=== PATIENT | male | born 1960 | race Caucasian/White ===

== ENCOUNTER 2018-04-18 18:45 | Emergency (ER) | payer OTHER ==
[~2018-04-18] VITALS: Ht 170.2 cm; Wt 79.4 kg
[2018-04-18 19:52] LABS: BASOPHILS ABSOLUTE AUTO 0.04 K/mm3 (0.00-0.23); BASOPHILS PERCENT AUTO 1 % (0-2); EOSINOPHILS ABSOLUTE AUTO 0.32 K/mm3 (0.00-0.68); EOSINOPHILS PERCENT AUTO 7 % (0-6); Hematocrit 35.3 % (37.0-53.0); Hemoglobin 12.6 g/dL (13.5-17.5); IMMATURE GRAN ABSOLUTE AUTO 0.02 K/mm3 (0.00-0.10); IMMATURE GRAN PERCENT AUTO 1 % (0-1); LYMPHOCYTES ABSOLUTE AUTO 1.75 K/mm3 (0.84-5.20); LYMPHOCYTES PERCENT AUTO 41 % (21-46); MONOCYTES ABSOLUTE AUTO 0.33 K/mm3 (0.16-1.47); MONOCYTES PERCENT AUTO 8 % (4-13); Mean Corpuscular HGB 31.6 pg (26.0-34.0); Mean Corpuscular HGB Conc 35.7 g/dL (31.5-36.5); Mean Corpuscular Volume 89 fL (80-100); Mean Platelet Volume 10.3 fL (9.1-12.4); NEUTROPHILS ABSOLUTE AUTO 1.84 K/mm3 (1.96-9.15); NEUTROPHILS PERCENT AUTO 43 % (41-73); Platelet Count 228 K/mm3 (150-400); RDW Coefficient Variation 12.4 % (11.7-14.2); RDW Standard Deviation 40.8 fL (35.1-46.3); Red Blood Cell Count 3.99 M/mm3 (4.30-5.90)
[2018-04-18 20:07] LABS: Alanine Aminotransfer (ALT/SGP 60 U/L (12-78); Albumin, Blood 2.9 g/dL (3.4-5.0); Alk Phos 146 U/L (50-136); Anion Gap 8 mmol/L (6-16); Aspartate Aminotrans (AST/SGOT 53 U/L (12-37); Bilirubin, Total 0.6 mg/dL (0.1-1.0); Blood Urea Nitrogen 19 mg/dL (8-24); Bun/Creatinine Ratio 27.4 (12.0-20.0); CO2, Blood 27 mmol/L (21-32); Calcium, Blood 8.4 mg/dL (8.5-10.1); Chloride, Blood 98 mmol/L (98-108); Creatinine, Blood 0.69 mg/dL (0.60-1.20); Globulin, Blood 2.8 g/dL (2.2-4.0); Glomerular Filtration Rate >60 (60-); Glucose, Blood 347 mg/dL (70-99); Potassium, Blood 4.1 mmol/L (3.5-5.5); Sodium, Blood 133 mmol/L (136-145); Total Protein, Blood 5.7 g/dL (6.4-8.2); Troponin I <0.015 ng/mL (0.000-0.040)
[2018-04-18 20:09] LABS: Ethanol (Alcohol), Blood, Med <3 mg/dL
[2018-04-18 20:27] LABS: Source, Urine Clean Catch
[2018-04-18 20:34] LABS: Appearance, Urine Clear (Clear); Bilirubin, Urine Neg (Neg); Blood, Urine Neg (Neg); Color, Urine Yellow (P-Yellow); Glucose Qualitative, Urine 4+ (Neg); Ketones, Urine Neg (Neg); Leukocyte Esterase, Urine Neg (Neg); Nitrite, Urine Neg (Neg); Protein, Urine Neg (Neg); Urobilinogen, Urine NORM (Normal)
[2018-04-18 20:57] LABS: U Amphetamine Screen DETECTED; U Barbituate Screen Not Detected; U Benzodiazapine Screen Not Detected; U Buprenorphine Screen Not Detected; U Cannabinoids Screen Not Detected; U Cocaine Screen Not Detected; U Methadone Screen Not Detected; U Methamphetamine Screen DETECTED; U Opiates Screen Not Detected; U Oxycodone Screen Not Detected; U Phencyclidine Screen Not Detected; U Propoxyphene Screen Not Detected
== END 2018-04-18 21:40 | disposition home or self-care (01) ==
LOC: ER 18:45
PROVIDERS: Emergency Medicine
DX: E11.65 Type 2 diabetes mellitus with hyperglycemia (principal); F15.10 Other stimulant abuse, uncomplicated; E86.0 Dehydration; Z87.891 Personal history of nicotine dependence
CPT/HCPCS: 74177; 80053; 81003; 83690; 84484; 85025; 93005; 93010; 96360; 96361; 99285-25; G0480; J7030; Q9967

== ENCOUNTER 2021-03-29 10:37 | Emergency (ER) | payer OTHER ==
[~2021-03-29] VITALS: Ht 170.2 cm; Wt 77.1 kg
[2021-03-29 11:08] LABS: BASOPHILS ABSOLUTE AUTO 0.03 K/mm3 (0.00-0.23); BASOPHILS PERCENT AUTO 0 % (0-2); EOSINOPHILS PERCENT AUTO 3 % (0-6); Hematocrit 36.4 % (37.0-53.0); Hemoglobin 12.9 g/dL (13.5-17.5); IMMATURE GRAN ABSOLUTE AUTO 0.05 K/mm3 (0.00-0.10); IMMATURE GRAN PERCENT AUTO 1 % (0-1); LYMPHOCYTES ABSOLUTE AUTO 1.34 K/mm3 (0.84-5.20); LYMPHOCYTES PERCENT AUTO 19 % (21-46); MONOCYTES ABSOLUTE AUTO 0.48 K/mm3 (0.16-1.47); MONOCYTES PERCENT AUTO 7 % (4-13); Mean Corpuscular HGB Conc 35.4 g/dL (31.5-36.5); Mean Corpuscular Volume 88 fL (80-100); Mean Platelet Volume 9.7 fL (9.1-12.4); NEUTROPHILS ABSOLUTE AUTO 5.14 K/mm3 (1.96-9.15); NEUTROPHILS PERCENT AUTO 71 % (41-73); Platelet Count 294 K/mm3 (150-400); RDW Coefficient Variation 12.3 % (11.7-14.2); RDW Standard Deviation 39.8 fL (35.1-46.3); Red Blood Cell Count 4.16 M/mm3 (4.30-5.90); White Blood Cell Count 7.24 K/mm3 (4.00-11.30)
[2021-03-29 11:19] LABS: Alanine Aminotransfer (ALT/SGP 24 U/L (12-78); Albumin/Globulin Ratio 0.9 (0.8-1.8); Alk Phos 189 U/L (50-136); Anion Gap 3 mmol/L (6-16); Aspartate Aminotrans (AST/SGOT 31 U/L (12-37); Beta-hydroxybutyrate 0.7 mg/dL (0.2-2.8); Bilirubin, Total 0.6 mg/dL (0.1-1.0); Blood Urea Nitrogen 16 mg/dL (8-24); Bun/Creatinine Ratio 23.2 (12.0-20.0); CO2, Blood 31 mmol/L (21-32); Calcium, Blood 8.6 mg/dL (8.5-10.1); Chloride, Blood 98 mmol/L (98-108); Creatinine, Blood 0.69 mg/dL (0.60-1.20); Globulin, Blood 3.3 g/dL (2.2-4.0); Glomerular Filtration Rate >60 (60-); Glucose, Blood 338 mg/dL (70-99); Potassium, Blood 4.3 mmol/L (3.5-5.5); Sodium, Blood 132 mmol/L (136-145); Total Protein, Blood 6.3 g/dL (6.4-8.2)
[2021-03-29] MEDS ORDERED: SULTRIDS PO (12:16)
[2021-03-29 12:19] LABS: Base Excess Venous 5.8 mmol/L; Bicarbonate Venous 28.7 mmol/L (24.0-30.0); PO2 Venous 89.3 mmHg (38-42)
== END 2021-03-29 14:05 | disposition home or self-care (01) ==
LOC: ER 10:37
PROVIDERS: Emergency Medicine
DX: L02.413 Cutaneous abscess of right upper limb (principal); L03.113 Cellulitis of right upper limb; L03.316 Cellulitis of umbilicus; E11.65 Type 2 diabetes mellitus with hyperglycemia; I10 Essential (primary) hypertension
CPT/HCPCS: 10060; 80053; 82010; 82803; 82947; 85025; 87070; 87075; 87077; 87147; 87186; 87205; 96365-59; 96366-59; 99283-25; J1815; J3370; J7030; J7050

== ENCOUNTER 2022-02-23 16:46 | Emergency (ER) | payer OTHER ==
[~2022-02-23] VITALS: Ht 170.2 cm; Wt 77.1 kg
[~2022-02-23 16:46] MED LIST: SULTRIDS PO
[2022-02-23 17:45] LABS: BASOPHILS ABSOLUTE AUTO 0.03 K/mm3 (0.00-0.23); BASOPHILS PERCENT AUTO 1 % (0-2); EOSINOPHILS ABSOLUTE AUTO 0.22 K/mm3 (0.00-0.68); EOSINOPHILS PERCENT AUTO 5 % (0-6); Hematocrit 40.2 % (37.0-53.0); Hemoglobin 14.6 g/dL (13.5-17.5); IMMATURE GRAN ABSOLUTE AUTO 0.03 K/mm3 (0.00-0.10); IMMATURE GRAN PERCENT AUTO 1 % (0-1); LYMPHOCYTES ABSOLUTE AUTO 1.43 K/mm3 (0.84-5.20); LYMPHOCYTES PERCENT AUTO 32 % (21-46); MONOCYTES ABSOLUTE AUTO 0.28 K/mm3 (0.16-1.47); MONOCYTES PERCENT AUTO 6 % (4-13); Mean Corpuscular HGB 30.9 pg (26.0-34.0); Mean Corpuscular HGB Conc 36.3 g/dL (31.5-36.5); Mean Corpuscular Volume 85 fL (80-100); Mean Platelet Volume 10.1 fL (9.1-12.4); NEUTROPHILS ABSOLUTE AUTO 2.52 K/mm3 (1.96-9.15); NEUTROPHILS PERCENT AUTO 56 % (41-73); Platelet Count 285 K/mm3 (150-400); RDW Coefficient Variation 12.5 % (11.7-14.2); RDW Standard Deviation 38.5 fL (35.1-46.3); Red Blood Cell Count 4.72 M/mm3 (4.30-5.90); White Blood Cell Count 4.51 K/mm3 (4.00-11.30)
[2022-02-23 18:02] LABS: Albumin, Blood 3.3 g/dL (3.4-5.0); Albumin/Globulin Ratio 0.9 (0.8-1.8); Bilirubin, Total 0.7 mg/dL (0.1-1.0); Bun/Creatinine Ratio 27.3 (12.0-20.0); Calcium, Blood 9.1 mg/dL (8.5-10.1); Creatinine, Blood 0.81 mg/dL (0.60-1.20); Globulin, Blood 3.8 g/dL (2.2-4.0); Potassium, Blood 4.5 mmol/L (3.5-5.5); Total Protein, Blood 7.1 g/dL (6.4-8.2)
[2022-02-23 18:10] LABS: Base Excess Venous 5.5 mmol/L; Bicarbonate Venous 28.3 mmol/L (24.0-30.0); PCO2 Venous 46.8 mmHg (38-42); pH Blood Venous 7.42 (7.34-7.37)
[2022-02-23 21:23] LABS: Source, Urine Clean Catch
[2022-02-23 21:25] LABS: Appearance, Urine Clear (Clear); Bilirubin, Urine Neg (Neg); Blood, Urine 1+ (Neg); Color, Urine Yellow (P-Yellow); Glucose Qualitative, Urine 4+ (Neg); Ketones, Urine Neg (Neg); Leukocyte Esterase, Urine Neg (Neg); Nitrite, Urine Neg (Neg); Protein, Urine 2+ (Neg); Urobilinogen, Urine NORM (Normal)
[2022-02-23 21:31] LABS: Mucus Light (0-Heavy)
[2022-02-23 21:32] LABS: Bacteria Few /hpf; Squamous Epithelial Cells Rare /hpf (Few); White Blood Cells, Urine 0-2 /hpf (0-5)
[2022-02-23 23:25] LABS: Influenza A, PCR NEGATIVE (NEGATIVE); Influenza B, PCR NEGATIVE (NEGATIVE); Resp Syncytial Virus, PCR NEGATIVE (NEGATIVE); SARS-Cov-2 (COVID-19) PCR, MMC NEGATIVE (NEGATIVE)
[2022-02-23] MEDS ORDERED: MECL25 PO (23:41)
== END 2022-02-23 23:56 | disposition home or self-care (01) ==
LOC: ER 16:46
PROVIDERS: Emergency Medicine; Physician Assistant
DX: R42 Dizziness and giddiness (principal); E11.9 Type 2 diabetes mellitus without complications; Z87.891 Personal history of nicotine dependence; Z20.822 Contact with and (suspected) exposure to COVID-19
CPT/HCPCS: 0241U; 36415; 71046; 80053; 81001; 82803; 82947; 85025; 93005; 93010; A9270; J2405

== ENCOUNTER 2022-07-19 15:50 | Emergency (ER) | payer OTHER ==
[~2022-07-19] VITALS: Ht 170.2 cm; Wt 79.4 kg
[~2022-07-19 15:50] MED LIST changes: +MECL25 PO; +METF500 PO; +ONDA4ODT SL
== END 2022-07-19 16:10 | disposition home or self-care (01) ==
LOC: ER 15:50
DX: Z04.89 Encounter for examination and observation for other specified reasons (principal); E11.65 Type 2 diabetes mellitus with hyperglycemia; Z87.891 Personal history of nicotine dependence
CPT/HCPCS: 99283

== ENCOUNTER 2022-12-17 18:29 | Inpatient (IN) | payer OTHER ==
[~2022-12-17] VITALS: Ht 170.2 cm; Wt 75.6 kg
[2022-12-17 19:10] LABS: BASOPHILS ABSOLUTE AUTO 0.04 K/mm3 (0.00-0.23); BASOPHILS PERCENT AUTO 0 % (0-2); EOSINOPHILS ABSOLUTE AUTO 0.16 K/mm3 (0.00-0.68); EOSINOPHILS PERCENT AUTO 2 % (0-6); Hematocrit 32.6 % (37.0-53.0); Hemoglobin 11.6 g/dL (13.5-17.5); IMMATURE GRAN ABSOLUTE AUTO 0.06 K/mm3 (0.00-0.10); IMMATURE GRAN PERCENT AUTO 1 % (0-1); LYMPHOCYTES ABSOLUTE AUTO 1.27 K/mm3 (0.84-5.20); LYMPHOCYTES PERCENT AUTO 13 % (21-46); MONOCYTES ABSOLUTE AUTO 0.58 K/mm3 (0.16-1.47); MONOCYTES PERCENT AUTO 6 % (4-13); Mean Corpuscular HGB 31.2 pg (26.0-34.0); Mean Corpuscular HGB Conc 35.6 g/dL (31.5-36.5); Mean Corpuscular Volume 88 fL (80-100); Mean Platelet Volume 9.3 fL (9.1-12.4); NEUTROPHILS ABSOLUTE AUTO 7.67 K/mm3 (1.96-9.15); NEUTROPHILS PERCENT AUTO 79 % (41-73); Platelet Count 312 K/mm3 (150-400); RDW Coefficient Variation 12.4 % (11.7-14.2); RDW Standard Deviation 40.1 fL (35.1-46.3); Red Blood Cell Count 3.72 M/mm3 (4.30-5.90); White Blood Cell Count 9.78 K/mm3 (4.00-11.30)
[2022-12-17 20:04] LABS: Albumin, Blood 2.3 g/dL (3.4-5.0); Albumin/Globulin Ratio 0.5 (0.8-1.8); Bilirubin, Total 0.6 mg/dL (0.1-1.0); Bun/Creatinine Ratio 16.8 (12.0-20.0); C-REACTIVE PROTEIN, EXT RANGE 12.4 mg/dL (0.000-0.300); Calcium, Blood 8.3 mg/dL (8.5-10.1); Creatinine, Blood 0.71 mg/dL (0.60-1.20); Globulin, Blood 4.2 g/dL (2.2-4.0); Potassium, Blood 4.1 mmol/L (3.5-5.5); Total Protein, Blood 6.5 g/dL (6.4-8.2)
[2022-12-17 20:22] LABS: Source, Urine Clean Catch
[2022-12-17 20:36] LABS: Appearance, Urine Clear (Clear); Bilirubin, Urine Neg (Neg); Blood, Urine 2+ (Neg); Color, Urine Yellow (P-Yellow); Glucose Qualitative, Urine 4+ (Neg); Ketones, Urine Neg (Neg); Leukocyte Esterase, Urine Neg (Neg); Nitrite, Urine Neg (Neg); Protein, Urine 3+ (Neg); Specific Gravity, Urine 1.005 (1.003-1.022); Urobilinogen, Urine NORM (Normal)
[2022-12-17 20:46] LABS: Bacteria Rare /hpf; Squamous Epithelial Cells Not Seen /hpf (Few); White Blood Cells, Urine 0-2 /hpf (0-5)
[2022-12-18 05:12] VITALS: BP 155/93
--- NOTE | 2022-12-18 05:54 | NUR ---
SHIFT SUMMARY PT IS A&O4, UP WITH ONE, RA, PRN PAIN MEDICATOIN GIVEN PER MAR FOR RIGHT FOOT PAIN, PICS TAKEN AND ON CHART, PODIATRY CONSULTED, CONTINUE POC
[2022-12-18 07:39] VITALS: BP 139/91
[2022-12-18 16:17] VITALS: BP 140/91
--- NOTE | 2022-12-18 16:54 | NUR ---
SHIFT SUMMARY NO ACUTE CHANGES DURING SHIFT. PT ALERT AND ORIENTED, CALLS APPROPRIATELY. PT REMAINS ON RA. PODINATY SAW PT TODAY, MRI AND LE DOPPLER ORDERED. CONTINUE IV ABX AND PRN PAIN MEDICATIONS. WILL CONTINUE TO MONITOR. CALL LIGHT WITHIN REACH.
[2022-12-18 19:36] VITALS: BP 105/71
[2022-12-19 04:47] LABS: BASOPHILS ABSOLUTE AUTO 0.05 K/mm3 (0.00-0.23); BASOPHILS PERCENT AUTO 0 % (0-2); EOSINOPHILS ABSOLUTE AUTO 0.26 K/mm3 (0.00-0.68); EOSINOPHILS PERCENT AUTO 2 % (0-6); Hematocrit 31.6 % (37.0-53.0); IMMATURE GRAN ABSOLUTE AUTO 0.14 K/mm3 (0.00-0.10); IMMATURE GRAN PERCENT AUTO 1 % (0-1); LYMPHOCYTES ABSOLUTE AUTO 1.32 K/mm3 (0.84-5.20); LYMPHOCYTES PERCENT AUTO 10 % (21-46); MONOCYTES ABSOLUTE AUTO 0.54 K/mm3 (0.16-1.47); MONOCYTES PERCENT AUTO 4 % (4-13); Mean Corpuscular HGB Conc 34.8 g/dL (31.5-36.5); Mean Corpuscular Volume 89 fL (80-100); Mean Platelet Volume 9.5 fL (9.1-12.4); NEUTROPHILS PERCENT AUTO 83 % (41-73); Platelet Count 330 K/mm3 (150-400); RDW Coefficient Variation 12.2 % (11.7-14.2); RDW Standard Deviation 40.1 fL (35.1-46.3); Red Blood Cell Count 3.55 M/mm3 (4.30-5.90); White Blood Cell Count 13.81 K/mm3 (4.00-11.30)
[2022-12-19 05:02] LABS: Albumin, Blood 1.9 g/dL (3.4-5.0); Anion Gap 0 mmol/L (6-16); Blood Urea Nitrogen 19 mg/dL (8-24); Bun/Creatinine Ratio 25.4 (12.0-20.0); CO2, Blood 31 mmol/L (21-32); Calcium, Blood 8.4 mg/dL (8.5-10.1); Chloride, Blood 94 mmol/L (98-108); Creatinine, Blood 0.75 mg/dL (0.60-1.20); Glomerular Filtration Rate 101 (60-); Glucose, Blood 371 mg/dL (70-99); Phosphorus, Blood 2.6 mg/dL (2.5-4.9); Potassium, Blood 4.5 mmol/L (3.5-5.5); Sodium, Blood 125 mmol/L (136-145)
--- NOTE | 2022-12-19 05:49 | NUR ---
SHIFT SUMMARY PT IS A&O4, SB TO BR USES URINAL, RA, VSS, PRN PAIN MEDICATION GIVEN PER EMAR FOR RIGHT FOOT PAIN, DRESSING APPLIED TO RIGHT TOES PER PODIATRY NOTE THIS SHIFT, CONTINUE POC
[2022-12-19 08:18] VITALS: BP 140/82
[2022-12-19 10:32] LABS: Vancomycin, Trough 6.1 ug/mL (5.0-10.0)
[2022-12-19 15:19] VITALS: BP 128/73
--- NOTE | 2022-12-19 16:56 | NUR ---
SHIFT SUMMARY: NO NEW ACUTE CHANGES IN PATIENT CONDITION THIS SHIFT. PATIENT ON CONTACT ISOLATION FOR HX OF MRSA BACK IN 2020. PATIENT A&OX4. CALM, PLEASANT AND COOPERATIVE c CARE. USES CALL LIGHT APPROPRIATELY AND ABLE TO MAKE NEEDS KNOWN. PATIENT TOOK DRESSING OFF TO R FOOT. DRESSING CHANGED TO R FOOT THIS PM PER ORDER. PATIENT BS RANGES FROM 154-390 THIS SHIFT. MEDICATED INSULIN COVERAGE PER SLIDING SCALE. IV L FOREARM INFUSING NS AT 100 MLS/HR. IV TO R FOREARM SALINE LOCKED. RECEIVED SCHEDULED MEDS PER EMAR. BED ALARM ON FOR SAFETY. CALL LIGHT IN REACH.
[2022-12-19 19:54] VITALS: BP 127/81
[2022-12-20] VITALS (12 sets, daily range): BP systolic 93–144; BP diastolic 64–97
--- NOTE | 2022-12-20 04:18 | NUR ---
SHIFT SUMMARY - NO ACUTE CHANGES THROUGHOUT THIS SHIFT. PT NPO AT MIDNIGHT FOR SURGERY TODAY. RELAYED TO PT THAT HE IS SCHEDULED FOR SURGERY TODAY. RIGHT FOOT DRESSING IN PLACE, CD&I. PT HAS AT TIMES BEEN IRRITABLE WITH CARE, BUT IS REDIRECTABLE. PT HAS REMAINED IN BED AND USED HIS URINAL THROUGHOUT THE NIGHT. CALL LIGHT WITHIN REACH. BED IN LOW POSITION. BED ALARM ON FOR PT SAFETY. WILL CONTINUE TO MONITOR UNTIL AM SHIFT CHANGE.
[2022-12-20 04:59] LABS: BASOPHILS ABSOLUTE AUTO 0.06 K/mm3 (0.00-0.23); BASOPHILS PERCENT AUTO 1 % (0-2); EOSINOPHILS ABSOLUTE AUTO 0.27 K/mm3 (0.00-0.68); EOSINOPHILS PERCENT AUTO 2 % (0-6); Hematocrit 32.6 % (37.0-53.0); Hemoglobin 11.7 g/dL (13.5-17.5); IMMATURE GRAN PERCENT AUTO 1 % (0-1); LYMPHOCYTES ABSOLUTE AUTO 1.66 K/mm3 (0.84-5.20); LYMPHOCYTES PERCENT AUTO 14 % (21-46); MONOCYTES ABSOLUTE AUTO 0.53 K/mm3 (0.16-1.47); MONOCYTES PERCENT AUTO 5 % (4-13); Mean Corpuscular HGB 31.6 pg (26.0-34.0); Mean Corpuscular HGB Conc 35.9 g/dL (31.5-36.5); Mean Corpuscular Volume 88 fL (80-100); Mean Platelet Volume 9.4 fL (9.1-12.4); NEUTROPHILS PERCENT AUTO 77 % (41-73); Platelet Count 356 K/mm3 (150-400); RDW Coefficient Variation 12.6 % (11.7-14.2); RDW Standard Deviation 40.3 fL (35.1-46.3); White Blood Cell Count 11.62 K/mm3 (4.00-11.30)
[2022-12-20 05:28] LABS: Albumin, Blood 1.8 g/dL (3.4-5.0); Anion Gap 0 mmol/L (6-16); Blood Urea Nitrogen 16 mg/dL (8-24); Bun/Creatinine Ratio 24.8 (12.0-20.0); CO2, Blood 31 mmol/L (21-32); Calcium, Blood 8.4 mg/dL (8.5-10.1); Chloride, Blood 98 mmol/L (98-108); Creatinine, Blood 0.65 mg/dL (0.60-1.20); Glomerular Filtration Rate 106 (60-); Glucose, Blood 222 mg/dL (70-99); Phosphorus, Blood 2.9 mg/dL (2.5-4.9); Potassium, Blood 4.1 mmol/L (3.5-5.5); Sodium, Blood 129 mmol/L (136-145)
--- NOTE | 2022-12-20 11:51 | NUR ---
PT TO DAYSURGERY BY LAURA. History, Chart, Medications and Allergies reviewed before start of procedure.Lungs clear T/O to Auscultation. Patient confirms NPO status and agrees with scheduled surgery. Pre-Op teaching done. Pt verbalizes understanding.
--- NOTE | 2022-12-20 14:28 | NUR ---
RECIEVED REPORT FROM DUANE IN PACU. MID RIGHT FOT AMPUTATED. PT TRANSPORTED BACK TO ROOM. VS STABLE, ROOM AIR, A&O X4. SITA DRAIN IN PLACE, SCANT DRAINAGE, COVERED WITH GILLES BANDAGE, DRY AND INTACT. PT SITTING UP IN BED EATING. STATES NO PAIN OR DISCOMFORT AT THIS TIME.
--- NOTE | 2022-12-20 16:57 | NUR ---
SHIFT SUMMARY NOTE PT IS ALERT AND ORIENTED X4. PT NPO BEFORE SURGERY. IRRITABLE AND HUNGRY, THREATENING TO AMA BECAUSE OF HUNGER. PT WENT TO SURGERY AND HAD A PARTIAL AMPUTATION OF RIGHT FOOT. VS STABLE, O2 IN DROPPED TO 87 WHILE ASLEEP. PLACED 02 AT 2 LITERS. PT HAS GILLES BANDAGE WRAPPED AROUND HIS AMPUTATION THAT IS DRY, CLEAN, AND INTACT. SITA DRAIN TO BULB SUCTION. PT COMPLAINING OF PAIN GIVEN PAIN MEDICATIONS ORDERED.
[2022-12-20 22:31] LABS: Vancomycin, Trough 18.6 ug/mL (5.0-10.0)
--- NOTE | 2022-12-21 04:32 | NUR ---
SHIFT SUMMARY A/OX3, AGITATED AT BEGINNING OF SHIFT AND WANTING TO LEAVE AMA. C/O PAIN TO R. FOOT, MEDICATED PER EMAR. DRESSING TO RLE C/D/I. SITA DRAIN IN PLACE WITH BRIGHT RED OUTPUT. SPO2 >92% ON RA. VSS, NO ACUTE CHANGES AT THIS TIME. BED IN LOWEST POSITION WITH CALL LIGHT IN REACH. WILL CONTINUE TO MONITOR AND REPORT TO ONCOMING RN.
[2022-12-21 05:25] VITALS: BP 142/89
[2022-12-21 05:28] LABS: BASOPHILS ABSOLUTE AUTO 0.03 K/mm3 (0.00-0.23); BASOPHILS PERCENT AUTO 0 % (0-2); EOSINOPHILS ABSOLUTE AUTO 0.07 K/mm3 (0.00-0.68); EOSINOPHILS PERCENT AUTO 1 % (0-6); Hematocrit 29.3 % (37.0-53.0); Hemoglobin 10.4 g/dL (13.5-17.5); IMMATURE GRAN PERCENT AUTO 1 % (0-1); LYMPHOCYTES ABSOLUTE AUTO 1.68 K/mm3 (0.84-5.20); LYMPHOCYTES PERCENT AUTO 15 % (21-46); MONOCYTES ABSOLUTE AUTO 0.83 K/mm3 (0.16-1.47); MONOCYTES PERCENT AUTO 7 % (4-13); Mean Corpuscular HGB 31.3 pg (26.0-34.0); Mean Corpuscular HGB Conc 35.5 g/dL (31.5-36.5); Mean Corpuscular Volume 88 fL (80-100); Mean Platelet Volume 9.4 fL (9.1-12.4); NEUTROPHILS ABSOLUTE AUTO 8.88 K/mm3 (1.96-9.15); NEUTROPHILS PERCENT AUTO 77 % (41-73); Platelet Count 337 K/mm3 (150-400); RDW Coefficient Variation 12.5 % (11.7-14.2); RDW Standard Deviation 40.8 fL (35.1-46.3); Red Blood Cell Count 3.32 M/mm3 (4.30-5.90); White Blood Cell Count 11.59 K/mm3 (4.00-11.30)
[2022-12-21 05:52] LABS: Albumin, Blood 1.7 g/dL (3.4-5.0); Anion Gap 0 mmol/L (6-16); Blood Urea Nitrogen 22 mg/dL (8-24); Bun/Creatinine Ratio 24.3 (12.0-20.0); CO2, Blood 33 mmol/L (21-32); Calcium, Blood 8.3 mg/dL (8.5-10.1); Chloride, Blood 95 mmol/L (98-108); Creatinine, Blood 0.91 mg/dL (0.60-1.20); Glomerular Filtration Rate 95 (60-); Glucose, Blood 298 mg/dL (70-99); Phosphorus, Blood 2.5 mg/dL (2.5-4.9); Potassium, Blood 4.5 mmol/L (3.5-5.5); Sodium, Blood 128 mmol/L (136-145)
[2022-12-21 07:55] VITALS: BP 150/96
[2022-12-21 16:28] VITALS: BP 157/95
--- NOTE | 2022-12-21 17:25 | NUR ---
SHIFT SUMMARY NOTE PT ALERT & ORIENTED X4. CAN GET IRRITABLE, ESPECIALLY OVER FOOD. PT IS ON ADA DIET AND COMPLAINS OF NOT GETTING ENOUGH FOOD. AGRICULTURE PROFESSOR CAME TO SPEAK TO PT ABOUT DIABETIC DIET AND ENCOURAGED PT TO FOLLOW THE DIET. SHE PLACED ORDER FOR MORE PROTEIN AND MORE NON STARCHY VEGETABLES. PT NON WEIGHT BEARING ON RT FOOT UNTIL JANUARY 10. PT WORKED WITH PT/OT TODAY. PT SAYS HE HAS LOST ALL HIS FAMILY MEMBERS AND HAS NOTHING LEFT TO LIVE FOR. VSS. SITA DRAIN IN PLACED WITH MINIMAL RED DRAINAGE.
[2022-12-21 19:36] VITALS: BP 139/83
--- NOTE | 2022-12-22 03:15 | NUR ---
SHIFT SUMMARY NOC PT A/O X4 WITH FLAT AFFECT. PT HAD CONSTANT C/O PAIN IN R FOOT AND WAS MEDICATED PER EMAR. DRESSING ON R FOOT IS C/D/I AND SITA DRAIN HAS SCANT OUTPUT OF BRIGHT RED BLOOD. PT CBG WAS 174 AND NO R INSULIN CNI. 15 UNITS SCHEDULED LONG ACTING INSULIN ADMINISTERED. PT IS CURRENTLY RESTING WITH BED IN LOWEST POSITION, AND CALL LIGHT WITHIN REACH.
[2022-12-22 04:45] VITALS: BP 136/87
[2022-12-22 05:39] LABS: BASOPHILS ABSOLUTE AUTO 0.05 K/mm3 (0.00-0.23); BASOPHILS PERCENT AUTO 1 % (0-2); EOSINOPHILS ABSOLUTE AUTO 0.27 K/mm3 (0.00-0.68); EOSINOPHILS PERCENT AUTO 3 % (0-6); Hematocrit 29.3 % (37.0-53.0); Hemoglobin 10.1 g/dL (13.5-17.5); IMMATURE GRAN ABSOLUTE AUTO 0.13 K/mm3 (0.00-0.10); IMMATURE GRAN PERCENT AUTO 1 % (0-1); LYMPHOCYTES ABSOLUTE AUTO 1.66 K/mm3 (0.84-5.20); LYMPHOCYTES PERCENT AUTO 18 % (21-46); MONOCYTES ABSOLUTE AUTO 0.63 K/mm3 (0.16-1.47); MONOCYTES PERCENT AUTO 7 % (4-13); Mean Corpuscular HGB 31.6 pg (26.0-34.0); Mean Corpuscular HGB Conc 34.5 g/dL (31.5-36.5); Mean Corpuscular Volume 92 fL (80-100); Mean Platelet Volume 9.2 fL (9.1-12.4); NEUTROPHILS ABSOLUTE AUTO 6.76 K/mm3 (1.96-9.15); NEUTROPHILS PERCENT AUTO 71 % (41-73); Platelet Count 395 K/mm3 (150-400); RDW Coefficient Variation 12.9 % (11.7-14.2); RDW Standard Deviation 42.8 fL (35.1-46.3)
[2022-12-22 06:01] LABS: Albumin, Blood 1.7 g/dL (3.4-5.0); Anion Gap 0 mmol/L (6-16); Blood Urea Nitrogen 25 mg/dL (8-24); Bun/Creatinine Ratio 28.1 (12.0-20.0); CO2, Blood 31 mmol/L (21-32); Calcium, Blood 8.1 mg/dL (8.5-10.1); Chloride, Blood 100 mmol/L (98-108); Creatinine, Blood 0.89 mg/dL (0.60-1.20); Glomerular Filtration Rate 96 (60-); Glucose, Blood 118 mg/dL (70-99); Phosphorus, Blood 2.5 mg/dL (2.5-4.9); Potassium, Blood 4.4 mmol/L (3.5-5.5); Sodium, Blood 131 mmol/L (136-145)
[2022-12-22 07:52] VITALS: BP 149/91
[2022-12-22 10:22] LABS: Vancomycin, Trough 19.1 ug/mL (5.0-10.0)
[2022-12-22 15:50] VITALS: BP 115/69
--- NOTE | 2022-12-22 17:35 | NUR ---
SHIFT SUMMARY PATIENT AGITATED TODAY WITH LIMITATIONS ON PUDDINGS, WANTS MORE THAN 3 PER DAY. PATIENT ALSO C/O PAIN THROUGHOUT DAY AND MEDICATED PER EMAR. ANTIBIOTICS CURRENTLY RUNNING. CALL LIGHT IN REACH. PATIENT CALLS APPROPRIATELY. WILL CONTINUE TO MONITOR.
[2022-12-22 20:19] VITALS: BP 155/95
[2022-12-23 04:09] VITALS: BP 153/88
[2022-12-23 05:26] LABS: BASOPHILS ABSOLUTE AUTO 0.06 K/mm3 (0.00-0.23); BASOPHILS PERCENT AUTO 1 % (0-2); EOSINOPHILS ABSOLUTE AUTO 0.22 K/mm3 (0.00-0.68); EOSINOPHILS PERCENT AUTO 3 % (0-6); Hematocrit 29.5 % (37.0-53.0); Hemoglobin 10.2 g/dL (13.5-17.5); IMMATURE GRAN ABSOLUTE AUTO 0.11 K/mm3 (0.00-0.10); IMMATURE GRAN PERCENT AUTO 2 % (0-1); LYMPHOCYTES ABSOLUTE AUTO 1.24 K/mm3 (0.84-5.20); LYMPHOCYTES PERCENT AUTO 17 % (21-46); MONOCYTES ABSOLUTE AUTO 0.53 K/mm3 (0.16-1.47); MONOCYTES PERCENT AUTO 7 % (4-13); Mean Corpuscular HGB 31.1 pg (26.0-34.0); Mean Corpuscular HGB Conc 34.6 g/dL (31.5-36.5); Mean Corpuscular Volume 90 fL (80-100); NEUTROPHILS ABSOLUTE AUTO 5.24 K/mm3 (1.96-9.15); NEUTROPHILS PERCENT AUTO 71 % (41-73); Platelet Count 384 K/mm3 (150-400); RDW Coefficient Variation 12.8 % (11.7-14.2); RDW Standard Deviation 42.4 fL (35.1-46.3); Red Blood Cell Count 3.28 M/mm3 (4.30-5.90)
[2022-12-23 05:58] LABS: Albumin, Blood 1.8 g/dL (3.4-5.0); Anion Gap 1 mmol/L (6-16); Blood Urea Nitrogen 25 mg/dL (8-24); Bun/Creatinine Ratio 29.6 (12.0-20.0); CO2, Blood 31 mmol/L (21-32); Calcium, Blood 8.2 mg/dL (8.5-10.1); Chloride, Blood 100 mmol/L (98-108); Creatinine, Blood 0.85 mg/dL (0.60-1.20); Glomerular Filtration Rate 98 (60-); Glucose, Blood 309 mg/dL (70-99); Potassium, Blood 4.5 mmol/L (3.5-5.5); Sodium, Blood 132 mmol/L (136-145)
--- NOTE | 2022-12-23 07:39 | NUR ---
Lamont continues to be quite verbally abusive to the nursing staff. he is angry because he feels the Doctors are holding out the stronger narcotics because of his history. The kitchen is trying to starve him "to ". When this RN tried to talk to him about nutrition as it pertains to healing Patient said "Enough". He is thinking about going to [place]. Right foot dressing is clean dry and intact. SITA drain only yielded <5ml sanguinous fluid overnight.
[2022-12-23 07:48] VITALS: BP 129/93
[2022-12-23 15:35] VITALS: BP 148/98
--- NOTE | 2022-12-23 17:01 | NUR ---
SHIFT SUMMARY PT AOX4, IRRITABLE THIS AM. C/O PAIN THIS SHIFT AND MEDICATED PER THE EMAR. PT AMBULATED TO THE BATHROOM TODAY WITH A FWW AND GB. HE TOLERATED IT WELL. PT USES URINAL INDEPENDENTLY. PROVIDER CHANGED THE DRESSING TO HIS R FOOT, IT LOOKED CLEAN AND NO DRAINAGE NOTED. SITA DRAIN WAS REMOVED. PT'S PAIN MEDICATIONS WERE INCREASED AND HE IS TOLERATING IT WELL. BED IS IN THE LOWEST POSITION, CALL LIGHT IS WITHIN REACH. WILL REPORT TO ONCOMING NURSE.
[2022-12-23 19:54] VITALS: BP 159/100
[2022-12-23 22:23] LABS: Vancomycin, Trough 18.2 ug/mL (5.0-10.0)
--- NOTE | 2022-12-24 07:40 | NUR ---
Rn summary: Patient is alert and oriented. Patient was medicated with Oxy 10mg for RT foot pain. Pt became very nausiated with emisis of undigested food x3. Pt felt it was the Oxy. He had been taking 5mg previously. Pt IV infiltrated and new IV started to RT FA 22 gauge. Pt drsg to rt foot wrapped in yohan wrap and C/D/I. Pt did become frustrated in middle of the night with cares, wanted to be left alone. Isolation for MRSA. Call light in reach. Voids freq in the urinal.
[2022-12-24 07:59] VITALS: BP 160/85
[2022-12-24 14:32] VITALS: BP 136/89
--- NOTE | 2022-12-24 14:47 | NUR ---
RN NOTE MR CORONA IS ORIENTATED X4. ALTERNATES BETWEEN COOPERATIVE WITH CARE WND IRRITATED WITH BEING DISTURBED AND CARE PLAN. HE REFUSED PT/OT SO FAR TODAY. NWB R FOOT. DRESSING C,D,I. R FOOT ELEVATED ON PILLOW. C/O SOME PAIN TO R FOOT BUT PT HAS NOT WANTED TO TAKE PAIN MEDS AFTER N&V EPISODES. HE VOMITED AFTER BREAKFAST BUT SAID HE ATE A GOOD LUNCH WITHOUT NAUSEA. CONTINENT OF URINE. BED LOW, CALL LIGHT IN REACH.
--- NOTE | 2022-12-24 19:26 | NUR ---
SHIFT SUMMARY NO ACUTE CHANGES SINCE RN NOTE AT 1447. PT HAS DECLINED PAIN MEDICATIONS. NO FURTHER NAUSEA OR VOMITING AND APPETITE HAS RETURNED. RED RASH ON COCCYX AREA AND ITCHY BEHIND LEFT SHOULDER. PT SAID COCCYX RASH HAS BEEN A CHRONIC CONDITION. BED LOW, CALL LIGHT IN REACH.
[2022-12-24 21:46] VITALS: BP 139/97
--- NOTE | 2022-12-25 05:43 | NUR ---
GRAVE DIGGER SUMMARY PT A/OX4. ABLE TO MAKE NEEDS KNOWN. PT EASILY AGITATED AND HAS SEVERAL EPISODES OF AGITATION T/O THE NIGHT. PT REPORTED APPETITE RETURNED AND DENIED N&V THIS SHIFT. PT TOLERATING ORAL INTAKE WELL. PT DISTURBED BY SCREAMING OF ANOTHER PT; CAME OUT OF ROOM YELLING AT STAFF SAYING HE WASN'T SAYING. PT USING WALKER BUT BEARING WT ON RT FOOT. ADVISED PT OF NON WT BEARING STATUS. PT WAS EVENTUALLY REDIRECTED BACK TO ROOM BUT THREATENED TO LEAVE IF AWAKENED AGAIN.
[2022-12-25 08:20] VITALS: BP 152/98
[2022-12-25] MEDS ORDERED: AMOCLA875 PO (17:07)
[2022-12-25] MEDS ORDERED: BASAGLAR K100 UNIT/1 SC (17:08)
[2022-12-25] MEDS ORDERED: SULFAMETHOXAZO1 EAC1 PO (17:11)
[2022-12-25] MEDS ORDERED: NOVOLIN R100 UNIT/2 SC (17:11)
[2022-12-25] MEDS ORDERED: ACET325 PO (17:12)
[2022-12-25] MEDS ORDERED: LACT PO (17:12)
--- NOTE | 2022-12-25 18:35 | NUR ---
SHIFT SUMMARY: PT A/O X 4, ONE ASSIST WITH FWW. PT REPORTED THIS MORNING IF HE WAS DISCHARGED FROM THE HOSPITAL HE WOULD "COMMIT SUICIDE, MIGHT WELL BECAUSE MY CAR WAS STOLEN, AND I HAVE NO WHERE ELSE TO GO." PT WAS INFORMED HE WOULD NOT BE DISCHARGED FROM HOSPITAL AND WE WERE WAITING FOR AUTHORIZATION FOR A MOTEL. PT DENIED SUICIDE PLAN IF HE STAYED IN THE HOSPITAL. PT WAS PLACED ON CAMERA TO OBSERVE FOR SELF HARM BEHAVIORS JUST IN CASE. PT BEGAN REQUESTING SNACKS AND COMPLAINING ABOUT THE AMOUNT OF FOOD HE WAS SERVED SOON HE WAS DONE WITH BREAKFAST. PT WAS GIVEN MANY PROTEIN SNACKS, SOUP THROUGHOUT THE MORNING. HIS BLOOD SUGAR WAS 334 AT LUNCH TIME. PT WAS ALSO OBSERVED PLACING PERISHABLE FOODS IN HIS BOOTS AND HIDING FOOD. PT WAS THEN GIVEN NON PERISHABLE SNACKS ON REQUEST AND HE BEGAN COMPLAINING ABOUT THE SNACK TYPES. PT GIVEN BOUNDARIES OF SNACKS DUE TO HIS BLOOD SUGAR LEVELS. AROUND 151 PT THREATENED TO LEAVE THE HOSPITAL BECAUSE "WE WERE STARVING HIM." HE BEGAN GETTING HIMSELF DRESSED. DR. ROUSE NOTIFIED OF PT STATING HE WAS LEAVING SO SHE SAID SHE WOULD WRITE DISCHARGE ORDERS FOR HIM. REMOTE MONITORING CALLED AND REPORTED PT GOT BACK UNDRESSED AND BEGAN ROLLING HIS GOWN UP IN A NOOSE AND PLACED OVER HIS NECK. THIS RN INTERVENED AND AND SPOKE TO PT. PT INFORMED IF HE WAS GOING TO ATTEMPT TO COMMIT SUICIDE WE WOULD PLACE HIM ON SUICIDE WATCH AND I WOULD RESTRAIN HIM WITH RESTRAINTS. PT TOOK HIS GOWN OFF AROUND HIS NECK AND HE STATED "I WOULDN'T DO THIS IF YOU WOULD JUST FEED ME." PT REMINDED HE HAS BEEN GIVEN MANY SNACKS, SANDWICHES AND SOUP, CHEESE AND CRACKERS. PT STATED HE WOULD NOT HARM HIMSELF IF HE CAN EAT. PT GIVEN ANOTHER CHEESE AND CRACKERS. DR. ROUSE NOTIFIED OF BEHAVIORS AND PLACING GOWN A NOOSE AROUND HIS NECK. DR. ROUSE STATED TO CONTINUE TO MONITOR BEHAVIORS. SINCE THIS TIME PT HAS CONTINUED TO REQUEST SNACKS AND COMPLAINS HE IS NOT GETTING ENOUGH TO EAT. PT HAS HAD NO FURTHER EPISODES OF SELF HARM. PT ADVISED HE CAN DISCHARGE IF HE WANTS TO SO HE CAN EAT WHATEVER HE WANTS. PT STATES HE DOES NOT WANT TO DISCHARGE AND HE WILL WAIT TO SEE IF HE CAN GO TO A HOTEL. PT ALSO REQUESTED TO ELABORATE ON HIS VEHICLE HE WAS TOLD WAS STOLEN. PT STATED HE HAD A RED CONVERTIBLE CAR WITH A BLACK TOP [place]I WITH V6 ENGINE HE JUST BOUGHT OFF THE CAR LOT SO IT DOES NOT HAVE A LICENCE PLATE. PT REPORTED THE NIGHT HE CAME TO THE HOSPITAL THE DEPUTY WHO CALLED THE AMBULANCE STATED HE WOULD TAKE CARE OF HIS CAR. PT FRIEND TOLD HIM TODAY THE CAR WAS GONE WHERE HE LEFT IT. PT ATTEMPTED TO CALL THE CATCHER HELPER'S OFFICE WITH MY ASSISTANCE AND PER PT THEY WOULD CALL HIM BACK. HOWEVER, PT THREW HIS PHONE ACROSS THE ROOM AND SO PHONE BROKE AND WAS NOT REPLACED. THIS RN CALLED THE CATCHER HELPER'S OFFICE FOR PT AND DISPATCH REPORTED PT HAS HAD NO CONTACT WITH POLICE SINCE 01/24/22. PT CURRENTLY IN BED RR E/U WITH NO COMPLAINTS. PT REPORTED PAIN IN HIS FOOT THROUGHOUT THE DAY BUT REFUSED OFFER OF PAIN MEDICATIONS STATING OXYCODONE MAKES HIM TOO SICK. OFFERED TO GET TYLENOL OR IBUPROFEN ORDERED AND HE REFUSED. DRESSING CDI AT SHIFT END.
[2022-12-25 21:13] VITALS: BP 151/83
[2022-12-26 04:20] VITALS: BP 146/90
--- NOTE | 2022-12-26 05:06 | NUR ---
DEEP SUBMERGENCE VEHICLE OPERATOR SUMMARY PT A/OX4. PLEASANT AND COOPERATIVE T/O THE SHIFT. NO ACUTE EVENTS. PT ABLE TO MAKE NEEDS KNOWN. CALL LIGHT ACCESSIBLE. RT FOOT DRESSING CDI. VSS.
[2022-12-26 07:36] VITALS: BP 128/76
[2022-12-26 17:30] VITALS: BP 140/90
--- NOTE | 2022-12-26 18:10 | NUR ---
SHIFT SUMMARY PT AxOx4. COOPERATIVE WITH CARE. PT DEMANDING OF SNACKS AND EXTRA FOOD T/O THIS SHIFT. PT PLEASANT WHEN HE IS GRANTED HIS WISHES. PT REPORTS FEELING PAIN IN RLE. MEDICATED PER EMAR x2. VITALS REVIEWED. PT CURRENTLY SITTING IN BED WITH CALL LIGHT IN REACH. DENIES ANY NEEDS AT THIS TIME.
[2022-12-26 19:25] VITALS: BP 152/95
--- NOTE | 2022-12-27 04:00 | NUR ---
CELL TESTER SUMMARY PT AOX4, IRRITABLE TONIGHT. REFUSED ALL MEDICATIONS EXCEPT LONG ACTING INSULIN AND PAIN MEDICATIONS. PT CONSTANTLY ASKED FOR SNACKS AND WOULD THREATEN TO LEAVE AMA IF NOT PROVIDED SNACKS. PT GOT FULLY DRESSED AND WAS WALKING T/O THE HALLWAY, SAYING HE WAS GOING TO LEAVE. EVENTUALLY, WE DISCUSSED DISCHARGE PLANS AND HE DECIDED TO STAY AND WENT TO BED. PT HAS BEEN SLEEPING SINCE. BED IN THE LOWEST POSITION AND CALL LIGHT WITHIN REACH. WILL REPORT TO ONCOMING NURSE.
[2022-12-27 04:42] VITALS: BP 147/92
[2022-12-27 05:05] LABS: Hematocrit 31.7 % (37.0-53.0); Mean Corpuscular HGB 31.5 pg (26.0-34.0); Mean Corpuscular HGB Conc 34.7 g/dL (31.5-36.5); Mean Corpuscular Volume 91 fL (80-100); Mean Platelet Volume 9.1 fL (9.1-12.4); Platelet Count 502 K/mm3 (150-400); RDW Coefficient Variation 13.3 % (11.7-14.2); RDW Standard Deviation 43.6 fL (35.1-46.3); Red Blood Cell Count 3.49 M/mm3 (4.30-5.90); White Blood Cell Count 7.59 K/mm3 (4.00-11.30)
[2022-12-27 05:35] LABS: Albumin, Blood 2.3 g/dL (3.4-5.0); Anion Gap 2 mmol/L (6-16); Blood Urea Nitrogen 34 mg/dL (8-24); Bun/Creatinine Ratio 33.3 (12.0-20.0); CO2, Blood 29 mmol/L (21-32); Chloride, Blood 100 mmol/L (98-108); Creatinine, Blood 1.02 mg/dL (0.60-1.20); Glomerular Filtration Rate 83 (60-); Glucose, Blood 266 mg/dL (70-99); Phosphorus, Blood 3.4 mg/dL (2.5-4.9); Potassium, Blood 4.6 mmol/L (3.5-5.5); Sodium, Blood 131 mmol/L (136-145)
[2022-12-27 07:48] VITALS: BP 143/86
--- NOTE | 2022-12-27 18:41 | NUR ---
SHIFT SUMMARY PT IS ALERT AND ORIENTED X4. PT HAD BOUT OF ANGER BUT APPOLOGIZED SOON AFTER. NO ACUTE CHANGES THIS SHIFT. TREATED PAIN PER EMAR.
[2022-12-27 20:19] VITALS: BP 143/92
[2022-12-28 04:19] VITALS: BP 147/89
--- NOTE | 2022-12-28 05:22 | NUR ---
QUALITY CONTROL MICROBIOLOGIST SUMMARY PT A/OX4. PLEASANT AND COOPERATIVE THIS SHIFT. NO ACUTE CHANGES. EXPRESSING ANXIETY/UNCERTIANTY WITH DISCHARGE PLAN. ABLE TO MAKE NEEDS KNOWN. CALL LIGHT IS ACCESSIBLE. PT CAN BE IMPULSIVE--ON VIDEO MONITORING.
[2022-12-28 07:59] VITALS: BP 143/87
[2022-12-28] MEDS ORDERED: NOVOLIN R100 UNIT/2 SC (13:07)
--- NOTE | 2022-12-28 16:06 | NUR ---
PT DISCHARGED AT 1440 WITH ALL PERSONAL BELONGINGS. PT HAD EDUCTION GIVEN ON MONITORING AND GIVEN HIMSELF INSULIN. CAREMANAGER ARRAGED TAXI FOR PT TO GET TO HIS CARE. NO DISTRESS NOTED. MEDICATION FAXED TO [facility]. DISCHARGE PAPERWORK REVIEWED AND EDUCATIONAL MATERIAL SENT.
== END 2022-12-28 14:48 | disposition home or self-care (01) | DRG 239 ==
LOC: ER 18:29 → MEDS 21:00 → ENPENDDIS 12-25 16:14 → EDPENDDIS 12-25 16:14 → MEDS 12-28 14:48
PROVIDERS: Family Medicine; Internal Medicine; Podiatrist Foot & Ankle Surgery; Student in an Organized Health Care Education/Training Program; ADMIT Student in an Organized Health Care Education/Training Program
PROC: 0Y6M0ZB Detachment at Right Foot, Partial 2nd Ray, Open Approach (ICD-10-PCS; 2022-12-20)
PROC: 0Y6M0ZC Detachment at Right Foot, Partial 3rd Ray, Open Approach (ICD-10-PCS; 2022-12-20)
PROC: 0Y6M0ZD Detachment at Right Foot, Partial 4th Ray, Open Approach (ICD-10-PCS; 2022-12-20)
PROC: 0Y6M0Z9 Detachment at Right Foot, Partial 1st Ray, Open Approach (ICD-10-PCS; principal; 2022-12-20 12:00)
DX: E11.52 Type 2 diabetes mellitus with diabetic peripheral angiopathy with gangrene (principal); M72.6 Necrotizing fasciitis; M86.671 Other chronic osteomyelitis, right ankle and foot; I96 Gangrene, not elsewhere classified; E87.1 Hypo-osmolality and hyponatremia; E11.621 Type 2 diabetes mellitus with foot ulcer; E11.69 Type 2 diabetes mellitus with other specified complication; B95.2 Enterococcus as the cause of diseases classified elsewhere; B95.62 Methicillin resistant Staphylococcus aureus infection as the cause of diseases classified elsewhere; L97.519 Non-pressure chronic ulcer of other part of right foot with unspecified severity; Z79.4 Long term (current) use of insulin; E11.65 Type 2 diabetes mellitus with hyperglycemia; D64.9 Anemia, unspecified; E88.09 Other disorders of plasma-protein metabolism, not elsewhere classified; F15.10 Other stimulant abuse, uncomplicated; Z59.00 Homelessness unspecified; D72.829 Elevated white blood cell count, unspecified; Z91.148 Patient's other noncompliance with medication regimen for other reason; Z90.49 Acquired absence of other specified parts of digestive tract; Z87.891 Personal history of nicotine dependence; Z79.2 Long term (current) use of antibiotics; Z91.119 Patient's noncompliance with dietary regimen due to unspecified reason
CPT/HCPCS: 36415; 71045; 73630; 73720; 80053; 80069; 80202; 81001; 82947; 83036; 83605; 85025; 85027; 85651; 86140; 87040; 87071; 87075; 87077; 87186; 87205; 88307; 88311; 93005; 93010; 93926; 94760; 96365; 96368; 97110; 97116; 97161; 97166; 97530; 97535; 99285-25; A9270; A9579; J0692; J1100; J1650; J1815; J2250; J2370; J2405; J2543; J2704; J2795; J3010; J3370; J7030; J7050; J7120

== ENCOUNTER 2023-02-02 08:26 | Emergency (ER) | payer OTHER ==
[~2023-02-02] VITALS: Ht 170.2 cm; Wt 72.6 kg
[~2023-02-02 08:26] MED LIST changes: +ACET325 PO; +AMOCLA875 PO; +BASAGLAR K100 UNIT/1 SC; +LACT PO; +NOVOLIN R100 UNIT/2 SC; +SULFAMETHOXAZO1 EAC1 PO
[2023-02-02 09:15] VITALS: BP 181/104
[2023-02-02 09:31] LABS: BASOPHILS ABSOLUTE AUTO 0.03 K/mm3 (0.00-0.23); BASOPHILS PERCENT AUTO 1 % (0-2); EOSINOPHILS ABSOLUTE AUTO 0.12 K/mm3 (0.00-0.68); EOSINOPHILS PERCENT AUTO 3 % (0-6); Hematocrit 35.3 % (37.0-53.0); Hemoglobin 12.9 g/dL (13.5-17.5); IMMATURE GRAN ABSOLUTE AUTO 0.01 K/mm3 (0.00-0.10); IMMATURE GRAN PERCENT AUTO 0 % (0-1); LYMPHOCYTES ABSOLUTE AUTO 1.11 K/mm3 (0.84-5.20); LYMPHOCYTES PERCENT AUTO 31 % (21-46); MONOCYTES ABSOLUTE AUTO 0.29 K/mm3 (0.16-1.47); MONOCYTES PERCENT AUTO 8 % (4-13); Mean Corpuscular HGB 30.4 pg (26.0-34.0); Mean Corpuscular HGB Conc 36.5 g/dL (31.5-36.5); Mean Corpuscular Volume 83 fL (80-100); Mean Platelet Volume 9.1 fL (9.1-12.4); NEUTROPHILS ABSOLUTE AUTO 2.08 K/mm3 (1.96-9.15); NEUTROPHILS PERCENT AUTO 57 % (41-73); Platelet Count 286 K/mm3 (150-400); RDW Coefficient Variation 12.5 % (11.7-14.2); RDW Standard Deviation 37.8 fL (35.1-46.3); Red Blood Cell Count 4.24 M/mm3 (4.30-5.90); White Blood Cell Count 3.64 K/mm3 (4.00-11.30)
[2023-02-02 09:51] LABS: Albumin, Blood 2.9 g/dL (3.4-5.0); Albumin/Globulin Ratio 0.9 (0.8-1.8); Bilirubin, Total 1.1 mg/dL (0.1-1.0); Bun/Creatinine Ratio 19.6 (12.0-20.0); Calcium, Blood 8.3 mg/dL (8.5-10.1); Creatinine, Blood 0.92 mg/dL (0.60-1.20); Globulin, Blood 3.3 g/dL (2.2-4.0); Potassium, Blood 3.5 mmol/L (3.5-5.5); Total Protein, Blood 6.2 g/dL (6.4-8.2)
[2023-02-02] MEDS ORDERED: ONDA4ODT MM (10:14)
== END 2023-02-02 11:05 | disposition home or self-care (01) ==
LOC: ER 08:26
PROVIDERS: Emergency Medicine
DX: R11.2 Nausea with vomiting, unspecified (principal); Z48.02 Encounter for removal of sutures; E11.9 Type 2 diabetes mellitus without complications; Z79.4 Long term (current) use of insulin; Z87.891 Personal history of nicotine dependence
CPT/HCPCS: 80053; 83690; 85025; A9270; J7030

== ENCOUNTER 2023-02-02 12:57 | Emergency (ER) | payer OTHER ==
[~2023-02-02] VITALS: Ht 170.2 cm; Wt 72.6 kg
[~2023-02-02 12:57] MED LIST changes: +ONDA4ODT MM
[2023-02-02 18:22] VITALS: BP 123/86
== END 2023-02-02 18:36 | disposition home or self-care (01) ==
LOC: ER 12:57
DX: R10.84 Generalized abdominal pain (principal); R11.2 Nausea with vomiting, unspecified; E11.9 Type 2 diabetes mellitus without complications; Z79.4 Long term (current) use of insulin; Z87.891 Personal history of nicotine dependence
CPT/HCPCS: 74177; A9270; J0780; J7030; Q9967

== ENCOUNTER 2023-08-15 16:33 | Emergency (ER) | payer OTHER ==
[~2023-08-15] VITALS: Ht 170.2 cm; Wt 72.6 kg
[2023-08-15 17:07] LABS: BASOPHILS ABSOLUTE AUTO 0.02 K/mm3 (0.00-0.23); BASOPHILS PERCENT AUTO 1 % (0-2); EOSINOPHILS ABSOLUTE AUTO 0.13 K/mm3 (0.00-0.68); EOSINOPHILS PERCENT AUTO 3 % (0-6); Hematocrit 36.6 % (37.0-53.0); Hemoglobin 13.6 g/dL (13.5-17.5); IMMATURE GRAN ABSOLUTE AUTO 0.01 K/mm3 (0.00-0.10); IMMATURE GRAN PERCENT AUTO 0 % (0-1); LYMPHOCYTES ABSOLUTE AUTO 1.31 K/mm3 (0.84-5.20); LYMPHOCYTES PERCENT AUTO 32 % (21-46); MONOCYTES ABSOLUTE AUTO 0.38 K/mm3 (0.16-1.47); MONOCYTES PERCENT AUTO 9 % (4-13); Mean Corpuscular HGB 31.2 pg (26.0-34.0); Mean Corpuscular HGB Conc 37.2 g/dL (31.5-36.5); Mean Corpuscular Volume 84 fL (80-100); Mean Platelet Volume 9.6 fL (9.1-12.4); NEUTROPHILS ABSOLUTE AUTO 2.25 K/mm3 (1.96-9.15); NEUTROPHILS PERCENT AUTO 55 % (41-73); Platelet Count 256 K/mm3 (150-400); RDW Coefficient Variation 12.3 % (11.7-14.2); Red Blood Cell Count 4.36 M/mm3 (4.30-5.90)
[2023-08-15 17:28] LABS: Albumin, Blood 3.1 g/dL (3.4-5.0); Bilirubin, Total 1.5 mg/dL (0.1-1.0); Bun/Creatinine Ratio 20.6 (12.0-20.0); Calcium, Blood 8.6 mg/dL (8.5-10.1); Creatinine, Blood 0.78 mg/dL (0.60-1.20); Globulin, Blood 3.2 g/dL (2.2-4.0); Potassium, Blood 3.9 mmol/L (3.5-5.5); Total Protein, Blood 6.3 g/dL (6.4-8.2)
[2023-08-15 19:55] LABS: Source, Urine Clean Catch
[2023-08-15 19:58] LABS: Appearance, Urine Clear (Clear); Bilirubin, Urine Neg (Neg); Blood, Urine 2+ (Neg); Color, Urine Yellow (P-Yellow); Glucose Qualitative, Urine 3+ (Neg); Ketones, Urine 1+ (Neg); Leukocyte Esterase, Urine Neg (Neg); Nitrite, Urine Neg (Neg); Protein, Urine 3+ (Neg); Specific Gravity, Urine 1.015 (1.003-1.022); Urobilinogen, Urine NORM (Normal)
[2023-08-15 20:13] LABS: Bacteria Not Seen /hpf; Squamous Epithelial Cells Not Seen /hpf (Few); White Blood Cells, Urine 0-2 /hpf (0-5)
[2023-08-15 21:07] VITALS: BP 171/106
[2023-08-15] MEDS ORDERED: ONDA4ODT SL (21:07)
== END 2023-08-15 21:15 | disposition home or self-care (01) ==
LOC: ER 16:33
PROVIDERS: Student in an Organized Health Care Education/Training Program
DX: E86.0 Dehydration (principal); E11.65 Type 2 diabetes mellitus with hyperglycemia; Z79.4 Long term (current) use of insulin; Z79.899 Other long term (current) drug therapy; Z87.891 Personal history of nicotine dependence
CPT/HCPCS: 80053; 81001; 83690; 85025; 93005; 93010; 96361; 96374; 99284-25; A9270; J1790; J7030

== ENCOUNTER 2023-10-14 15:13 | Emergency (ER) | payer OTHER ==
[~2023-10-14] VITALS: Ht 177.8 cm; Wt 68.0 kg
[2023-10-14] MEDS ORDERED: Lactated Ringer's 1,000 ML IV ONE (15:35)
[2023-10-14] MEDS ORDERED: Ondansetron HCl 2 MG / ML 2ML Vial IV PRN (15:35)
[2023-10-14 15:47] LABS: BASOPHILS ABSOLUTE AUTO 0.04 K/mm3 (0.00-0.23); BASOPHILS PERCENT AUTO 1 % (0-2); EOSINOPHILS ABSOLUTE AUTO 0.18 K/mm3 (0.00-0.68); EOSINOPHILS PERCENT AUTO 4 % (0-6); Hematocrit 38.2 % (37.0-53.0); Hemoglobin 13.9 g/dL (13.5-17.5); IMMATURE GRAN ABSOLUTE AUTO 0.03 K/mm3 (0.00-0.10); IMMATURE GRAN PERCENT AUTO 1 % (0-1); LYMPHOCYTES ABSOLUTE AUTO 1.44 K/mm3 (0.84-5.20); LYMPHOCYTES PERCENT AUTO 28 % (21-46); MONOCYTES ABSOLUTE AUTO 0.34 K/mm3 (0.16-1.47); MONOCYTES PERCENT AUTO 7 % (4-13); Mean Corpuscular HGB Conc 36.4 g/dL (31.5-36.5); Mean Corpuscular Volume 85 fL (80-100); Mean Platelet Volume 9.3 fL (9.1-12.4); NEUTROPHILS ABSOLUTE AUTO 3.14 K/mm3 (1.96-9.15); NEUTROPHILS PERCENT AUTO 61 % (41-73); Platelet Count 281 K/mm3 (150-400); RDW Coefficient Variation 12.5 % (11.7-14.2); RDW Standard Deviation 38.4 fL (35.1-46.3); Red Blood Cell Count 4.49 M/mm3 (4.30-5.90); White Blood Cell Count 5.17 K/mm3 (4.00-11.30)
[2023-10-14 16:01] LABS: Albumin, Blood 2.7 g/dL (3.4-5.0); Albumin/Globulin Ratio 0.8 (0.8-1.8); Bun/Creatinine Ratio 23.1 (12.0-20.0); Calcium, Blood 8.7 mg/dL (8.5-10.1); Creatinine, Blood 0.82 mg/dL (0.60-1.20); Globulin, Blood 3.5 g/dL (2.2-4.0); Total Protein, Blood 6.2 g/dL (6.4-8.2)
[2023-10-14 17:01] LABS: Influenza A, PCR NEGATIVE (NEGATIVE); Influenza B, PCR NEGATIVE (NEGATIVE); Resp Syncytial Virus, PCR NEGATIVE (NEGATIVE); SARS-Cov-2 (COVID-19) PCR, MMC NEGATIVE (NEGATIVE)
[2023-10-14 18:07] VITALS: BP 156/89
[2023-10-14] MEDS ORDERED: BASAGLAR K100 UNIT/1 SC (18:36)
[2023-10-15] MEDS ORDERED: BASAGLAR K100 UNIT/1 SC (14:33)
== END 2023-10-14 18:46 | disposition home or self-care (01) ==
LOC: ER 15:13
PROVIDERS: Emergency Medicine
DX: R10.9 Unspecified abdominal pain (principal); E11.65 Type 2 diabetes mellitus with hyperglycemia; R03.0 Elevated blood-pressure reading, without diagnosis of hypertension; Z91.199 Patient's noncompliance with other medical treatment and regimen due to unspecified reason; F15.90 Other stimulant use, unspecified, uncomplicated; Z79.4 Long term (current) use of insulin; Z87.891 Personal history of nicotine dependence
CPT/HCPCS: 0241U; 80053; 83690; 85025; 93005; 93010; 96374; 99284-25; J2405; J7120

== ENCOUNTER 2025-06-05 17:35 | Inpatient (IN) | payer MEDICARE ==
[~2025-06-05] VITALS: Ht 167.6 cm; Wt 67.5 kg
[2025-06-05 19:18] LABS: BASOPHILS ABSOLUTE AUTO 0.07 K/mm3 (0.00-0.23); BASOPHILS PERCENT AUTO 1 % (0-2); EOSINOPHILS ABSOLUTE AUTO 0.34 K/mm3 (0.00-0.68); EOSINOPHILS PERCENT AUTO 5 % (0-6); Hematocrit 32.3 % (37.0-53.0); Hemoglobin 12.0 g/dL (13.5-17.5); IMMATURE GRAN ABSOLUTE AUTO 0.04 K/mm3 (0.00-0.10); IMMATURE GRAN PERCENT AUTO 1 % (0-1); LYMPHOCYTES ABSOLUTE AUTO 1.66 K/mm3 (0.84-5.20); LYMPHOCYTES PERCENT AUTO 22 % (21-46); MONOCYTES ABSOLUTE AUTO 0.51 K/mm3 (0.16-1.47); MONOCYTES PERCENT AUTO 7 % (4-13); Mean Corpuscular HGB Conc 37.2 g/dL (31.5-36.5); Mean Corpuscular Volume 84 fL (80-100); NEUTROPHILS ABSOLUTE AUTO 4.98 K/mm3 (1.96-9.15); NEUTROPHILS PERCENT AUTO 66 % (41-73); NRBC ABSOLUTE 0.00 K/mm3 (0.00-0.02); NRBC Auto 0.0 /100 WBC (0.0-0.2); Platelet Count 279 K/mm3 (150-400); RDW Coefficient Variation 13.5 % (11.7-14.2); RDW Standard Deviation 41.1 fL (35.1-46.3)
[2025-06-05 19:57] LABS: Alanine Aminotransfer (ALT/SGP 40.0 U/L (12-78); Albumin, Blood 2.6 g/dL (3.4-5.0); Albumin/Globulin Ratio 0.7 (0.8-1.8); Anion Gap 6.0 mmol/L (3-11); Aspartate Aminotrans (AST/SGOT 44.0 U/L (12-37); Bilirubin, Total 1.0 mg/dL (0.1-1.0); Blood Urea Nitrogen 33.0 mg/dL (8-24); CO2, Blood 34.0 mmol/L (21-32); Calcium, Blood 9.1 mg/dL (8.5-10.1); Chloride, Blood 97.0 mmol/L (98-108); Creatinine, Blood 1.57 mg/dL (0.60-1.20); Globulin, Blood 3.5 g/dL (2.2-4.0); Glucose, Blood 334.0 mg/dL (70-99); Potassium, Blood 4.4 mmol/L (3.5-5.5); Sodium, Blood 133.0 mmol/L (136-145); Total Protein, Blood 6.1 g/dL (6.4-8.2)
[2025-06-05] MEDS ORDERED: Ondansetron HCl 2 MG / ML 2ML Vial IV PRN (23:00)
[2025-06-05] MEDS ORDERED: FLU VACC TS2025-26(6MOS UP)/PF 45 MCG/0.5 ML SYRINGE IM SCH (23:00)
[2025-06-06 00:01] LABS: Source, Urine Clean Catch
[2025-06-06 00:12] LABS: Bilirubin, Urine Neg (Neg); Glucose Qualitative, Urine 4+ (Neg); Ketones, Urine Neg (Neg); Leukocyte Esterase, Urine Neg (Neg); Protein, Urine 3+ (Neg); Specific Gravity, Urine 1.015 (1.003-1.022); Urobilinogen, Urine NORM (Normal)
[2025-06-06 00:34] LABS: Color, Urine Pale Yellow (P-Yellow)
[2025-06-06 00:35] LABS: White Blood Cells, Urine 0-2 /hpf (0-5)
[2025-06-06] MEDS ORDERED: Insulin Regular 100 UNIT/ML 10ML Vial SC SCH (07:30)
[2025-06-06] MEDS ORDERED: Enoxaparin 40 MG/0.4 ML SYR SC SCH (09:00)
[2025-06-06 10:59] LABS: BASOPHILS ABSOLUTE AUTO 0.05 K/mm3 (0.00-0.23); BASOPHILS PERCENT AUTO 1 % (0-2); EOSINOPHILS ABSOLUTE AUTO 0.24 K/mm3 (0.00-0.68); EOSINOPHILS PERCENT AUTO 5 % (0-6); Hematocrit 32.3 % (37.0-53.0); Hemoglobin 12.0 g/dL (13.5-17.5); IMMATURE GRAN ABSOLUTE AUTO 0.02 K/mm3 (0.00-0.10); IMMATURE GRAN PERCENT AUTO 0 % (0-1); LYMPHOCYTES ABSOLUTE AUTO 1.52 K/mm3 (0.84-5.20); LYMPHOCYTES PERCENT AUTO 28 % (21-46); MONOCYTES ABSOLUTE AUTO 0.34 K/mm3 (0.16-1.47); MONOCYTES PERCENT AUTO 6 % (4-13); Mean Corpuscular HGB Conc 37.2 g/dL (31.5-36.5); Mean Corpuscular Volume 84 fL (80-100); NEUTROPHILS ABSOLUTE AUTO 3.22 K/mm3 (1.96-9.15); NEUTROPHILS PERCENT AUTO 60 % (41-73); NRBC ABSOLUTE 0.00 K/mm3 (0.00-0.02); NRBC Auto 0.0 /100 WBC (0.0-0.2); Platelet Count 251 K/mm3 (150-400); RDW Coefficient Variation 13.4 % (11.7-14.2); RDW Standard Deviation 40.8 fL (35.1-46.3)
[2025-06-06] MEDS ORDERED: Insulin Human Lispro 100 Units/ML 3ML Syringe SC SCH (11:30)
[2025-06-06 11:33] LABS: Alanine Aminotransfer (ALT/SGP 30.0 U/L (12-78); Albumin, Blood 2.3 g/dL (3.4-5.0); Albumin/Globulin Ratio 0.6 (0.8-1.8); Anion Gap 6.0 mmol/L (3-11); Aspartate Aminotrans (AST/SGOT 32.0 U/L (12-37); Bilirubin, Total 1.4 mg/dL (0.1-1.0); Blood Urea Nitrogen 27.0 mg/dL (8-24); CO2, Blood 32.0 mmol/L (21-32); Calcium, Blood 8.5 mg/dL (8.5-10.1); Chloride, Blood 97.0 mmol/L (98-108); Creatinine, Blood 1.36 mg/dL (0.60-1.20); Globulin, Blood 3.6 g/dL (2.2-4.0); Glucose, Blood 290.0 mg/dL (70-99); Magnesium, Blood 1.9 mg/dL (1.6-2.4); Potassium, Blood 4.1 mmol/L (3.5-5.5); Sodium, Blood 131.0 mmol/L (136-145); Total Protein, Blood 5.9 g/dL (6.4-8.2)
[2025-06-06 12:47] VITALS: BP 190/110
--- NOTE | 2025-06-06 13:57 | NUR ---
ADMISSION NOTE PT ADMITTED TO UNIT AT APPROX 1246. PT ABLE TO STAND AND AMBULATE TO HOSPITAL BED FROM [facility]. PT REFUSED CHANGING INTO GOWN AND FULL SKIN ASSESSMENT OTHERWISE COOPERATIVE WITH CARE. BP 190/110 - NORVASC ADMINISTERED/STARTED PER PROVIDER ORDER. CBG 334 - INSULIN ADMINISTERED PER ORDERS. PT DENIES ANY PAIN. A/Ox4. PHOTOS OBTAINED OF DIABETIC FOOT ULCER ON R HEEL AND WOUND CARE COMPLETED PER ORDERS. MED REC COMPLETED - PT REPORTS BEING HOMELESS AND TAKING NO MEDICATIONS INCLUDING NO INSULIN OR CBG CHECKS. LR RUNNING 125 ML/HR. EDUCATEDPT RE CALL SYSTEM AND SAFE AMBULATION. PT DENIES ANY FURTHER NEEDS OR CONCERNS.
[2025-06-06 17:26] VITALS: BP 185/108
--- NOTE | 2025-06-06 17:51 | NUR ---
PT BLOOD PRESSURES REMAINS ELEVATED. RN UPDATED PROVIDER VIA PHONE - PROVIDER ENTERED NEW ORDERS FOR SCHEDULED LABETOLOL WITH FIRST DOSE NOW. PT DENIES ASYMPTOMATIC - DENIES CHEST PAIN/PRESSURE, SOB, OR HEADACHE/BLURRY VISION OUTSIDE OF NORMAL.
[2025-06-06 20:11] VITALS: BP 104/75
[2025-06-06] MEDS ORDERED: Insulin Glargine 100 Unit/ML 3 ML SYR SC SCH (21:00)
--- NOTE | 2025-06-07 04:09 | NUR ---
SHIFT SUMMARY PATIENT AGITATED AND THROWING FOOD AT RN WORKING SOFTWARE PACKAGER AT START OF SHIFT. REMINDED THIS BEHAVIOR IS NOT TOLERATED AND RESOLVED. ALERT ORIENTED AND SBA TO BR. PIV INTACT. LR INFUSING @ 125 mL/HR. DENIES CHEST PAIN, SOB, AND N/V. VSS/AFEBRILE. CBG 261. SLEPT MOST OF THE SHIFT. CALL LIGHT IN REACH. BED IN LOWEST POSITION. WILL CONTINUE TO MONITOR UNTIL DAY SHIFT NURSE ASSUMES CARE.
[2025-06-07 05:03] VITALS: BP 137/95
[2025-06-07 05:05] VITALS: BP 143/86
[2025-06-07 05:57] LABS: BASOPHILS ABSOLUTE AUTO 0.04 K/mm3 (0.00-0.23); BASOPHILS PERCENT AUTO 1 % (0-2); EOSINOPHILS ABSOLUTE AUTO 0.29 K/mm3 (0.00-0.68); EOSINOPHILS PERCENT AUTO 6 % (0-6); Hematocrit 28.5 % (37.0-53.0); Hemoglobin 10.2 g/dL (13.5-17.5); IMMATURE GRAN ABSOLUTE AUTO 0.02 K/mm3 (0.00-0.10); IMMATURE GRAN PERCENT AUTO 0 % (0-1); LYMPHOCYTES ABSOLUTE AUTO 1.51 K/mm3 (0.84-5.20); LYMPHOCYTES PERCENT AUTO 31 % (21-46); MONOCYTES ABSOLUTE AUTO 0.35 K/mm3 (0.16-1.47); MONOCYTES PERCENT AUTO 7 % (4-13); Mean Corpuscular HGB Conc 35.8 g/dL (31.5-36.5); Mean Corpuscular Volume 85 fL (80-100); NEUTROPHILS ABSOLUTE AUTO 2.70 K/mm3 (1.96-9.15); NEUTROPHILS PERCENT AUTO 55 % (41-73); NRBC ABSOLUTE 0.00 K/mm3 (0.00-0.02); NRBC Auto 0.0 /100 WBC (0.0-0.2); Platelet Count 248 K/mm3 (150-400); RDW Coefficient Variation 13.6 % (11.7-14.2); RDW Standard Deviation 42.3 fL (35.1-46.3)
[2025-06-07 06:12] LABS: Anion Gap 5.0 mmol/L (3-11); Blood Urea Nitrogen 30.0 mg/dL (8-24); CO2, Blood 34.0 mmol/L (21-32); Calcium, Blood 8.2 mg/dL (8.5-10.1); Chloride, Blood 95.0 mmol/L (98-108); Creatinine, Blood 1.61 mg/dL (0.60-1.20); Glucose, Blood 266.0 mg/dL (70-99); Magnesium, Blood 1.7 mg/dL (1.6-2.4); Phosphorus, Blood 3.0 mg/dL (2.5-4.9); Potassium, Blood 4.2 mmol/L (3.5-5.5); Sodium, Blood 130.0 mmol/L (136-145)
[2025-06-07 07:41] VITALS: BP 154/102
--- NOTE | 2025-06-07 09:00 | NUR ---
PT PLEASANT COOP A/O X3 STATES RETIRED FROM [employer]. DENIES CHEST PIAN, PRESSURE. H/R REG, NO MURMUR NOTED. NO EDEMA. NO TELE. LUNGS CLEAR , RESP EASY, UNLABORED ON R/A. BT X4 LAST THIS AM PER PT. VOIDS PT BATHROOM, SBA. WOUND ON RT FOOT. BANDAIDE OVER. NO OTHER CONCERNS NOTED. BED IN LOW POSITION, CALLLITE IN REACH, CALLS APPROP
[2025-06-07 17:05] VITALS: BP 152/94
--- NOTE | 2025-06-07 17:54 | NUR ---
PT REASONABLE ALL DAY FOR ME. PT HAS EXTRA FOOD T/O DAY. CBG UP SOME. MED PER EMAR. PT HAS BEEN SLEEPING MOST OF DAY WHEN NOT EATING. DID GET UP TO GO TO BATHROOM. SBA. NO NEW CONCERNS NOTED. BED IN LOW POSITION, CALLLITE IN REACH, CALLS APPROP
[2025-06-07 19:22] VITALS: BP 150/85
[2025-06-08 03:14] VITALS: BP 168/85
--- NOTE | 2025-06-08 06:38 | NUR ---
PLANT CARE WORKER SUMMARY PT A&OX4, VSS, EXCEPT HTN. PT COOPERATIVE W/ CARE. USES CALL LIGHT APPROPRIATELY. PT HAS BEEN ASLEEP ON AND OFF THIS SHIFT. CHEST RISE/RESPIRATIONS NOTED. PT DID ENDORSE N/V. ZOFRAN ADMIN 1X W/ GOOD EFFECT. DENIES CHEST PAIN/PRESSURE/DISCOMFORT. DRESSING ON RLE REMAINS CDI. BED RAILS UP X 2, BED IN LOWEST POSITION, BED WHEELS LOCKED, PERSONAL BELONGINGS AND CALL LIGHT WITHIN REACH FOR SAFETY.
[2025-06-08 07:57] VITALS: BP 151/85
[2025-06-08 09:17] LABS: BASOPHILS ABSOLUTE AUTO 0.03 K/mm3 (0.00-0.23); BASOPHILS PERCENT AUTO 1 % (0-2); EOSINOPHILS ABSOLUTE AUTO 0.21 K/mm3 (0.00-0.68); EOSINOPHILS PERCENT AUTO 4 % (0-6); Hematocrit 28.6 % (37.0-53.0); Hemoglobin 10.4 g/dL (13.5-17.5); IMMATURE GRAN ABSOLUTE AUTO 0.05 K/mm3 (0.00-0.10); IMMATURE GRAN PERCENT AUTO 1 % (0-1); LYMPHOCYTES ABSOLUTE AUTO 1.32 K/mm3 (0.84-5.20); LYMPHOCYTES PERCENT AUTO 22 % (21-46); MONOCYTES ABSOLUTE AUTO 0.39 K/mm3 (0.16-1.47); MONOCYTES PERCENT AUTO 6 % (4-13); Mean Corpuscular HGB Conc 36.4 g/dL (31.5-36.5); Mean Corpuscular Volume 84 fL (80-100); NEUTROPHILS ABSOLUTE AUTO 4.06 K/mm3 (1.96-9.15); NEUTROPHILS PERCENT AUTO 67 % (41-73); NRBC ABSOLUTE 0.00 K/mm3 (0.00-0.02); NRBC Auto 0.0 /100 WBC (0.0-0.2); Platelet Count 249 K/mm3 (150-400); RDW Coefficient Variation 13.5 % (11.7-14.2); RDW Standard Deviation 41.6 fL (35.1-46.3)
[2025-06-08 09:32] LABS: Anion Gap 6.0 mmol/L (3-11); Blood Urea Nitrogen 38.0 mg/dL (8-24); CO2, Blood 32.0 mmol/L (21-32); Calcium, Blood 8.3 mg/dL (8.5-10.1); Chloride, Blood 97.0 mmol/L (98-108); Creatinine, Blood 1.42 mg/dL (0.60-1.20); Glucose, Blood 265.0 mg/dL (70-99); Magnesium, Blood 1.8 mg/dL (1.6-2.4); Phosphorus, Blood 3.0 mg/dL (2.5-4.9); Potassium, Blood 4.3 mmol/L (3.5-5.5); Sodium, Blood 131.0 mmol/L (136-145)
[2025-06-08 15:22] VITALS: BP 152/94
--- NOTE | 2025-06-08 18:09 | NUR ---
SHIFT SUMMARY PT A&OX4, VSS, RA, NON-TELE, NO ACUTE CHANGES THIS SHIFT. WOUND CARE TO DIABETIC FOOT ULCER PER ORDERS. PT FREQUENTLY REQUESTS SNACKS, EDUCATED ON DIABETIC DIET. PT HAD BM IN SHOWER. REGLAN STARTED BEFORE LUNCH AND PT STATED IMPROVED NAUSEA. COOPERATIVE WITH CARES, CALL LIGHT IN REACH.
[2025-06-08 20:34] VITALS: BP 115/78
[2025-06-09 05:25] VITALS: BP 117/70
[2025-06-09 05:32] LABS: BASOPHILS ABSOLUTE AUTO 0.03 K/mm3 (0.00-0.23); BASOPHILS PERCENT AUTO 1 % (0-2); EOSINOPHILS ABSOLUTE AUTO 0.23 K/mm3 (0.00-0.68); EOSINOPHILS PERCENT AUTO 5 % (0-6); Hematocrit 25.9 % (37.0-53.0); Hemoglobin 9.2 g/dL (13.5-17.5); IMMATURE GRAN ABSOLUTE AUTO 0.04 K/mm3 (0.00-0.10); IMMATURE GRAN PERCENT AUTO 1 % (0-1); LYMPHOCYTES ABSOLUTE AUTO 1.55 K/mm3 (0.84-5.20); LYMPHOCYTES PERCENT AUTO 34 % (21-46); MONOCYTES ABSOLUTE AUTO 0.40 K/mm3 (0.16-1.47); MONOCYTES PERCENT AUTO 9 % (4-13); Mean Corpuscular HGB Conc 35.5 g/dL (31.5-36.5); Mean Corpuscular Volume 86 fL (80-100); NEUTROPHILS ABSOLUTE AUTO 2.33 K/mm3 (1.96-9.15); NEUTROPHILS PERCENT AUTO 51 % (41-73); NRBC ABSOLUTE 0.00 K/mm3 (0.00-0.02); NRBC Auto 0.0 /100 WBC (0.0-0.2); Platelet Count 217 K/mm3 (150-400); RDW Coefficient Variation 13.9 % (11.7-14.2); RDW Standard Deviation 43.2 fL (35.1-46.3)
[2025-06-09 05:52] LABS: Anion Gap 8.0 mmol/L (3-11); Blood Urea Nitrogen 54.0 mg/dL (8-24); CO2, Blood 30.0 mmol/L (21-32); Calcium, Blood 8.2 mg/dL (8.5-10.1); Chloride, Blood 99.0 mmol/L (98-108); Creatinine, Blood 1.59 mg/dL (0.60-1.20); Glucose, Blood 274.0 mg/dL (70-99); Magnesium, Blood 1.7 mg/dL (1.6-2.4); Phosphorus, Blood 4.0 mg/dL (2.5-4.9); Potassium, Blood 4.4 mmol/L (3.5-5.5); Sodium, Blood 133.0 mmol/L (136-145)
--- NOTE | 2025-06-09 06:06 | NUR ---
BUSINESS MGR SUMMARY PT A&OX4, VSS. NO ACUTE CHANGES THIS SHIFT. PT HAS BEEN ASLEEP FOR MOST OF THE NIGHT. CHEST RISE/RESPIRATIONS NOTED. WAKES UP INTERMITTENTLY TO HAVE SNACKS THROUGHOUT THE NIGHT. CONTINUES TO HAVE GOOD APPETITE. WOUND CARE NOT PERFORMED PER WOUND CARE ORDERS. DRESSING REMAINS CDI. BED RAILS UP X 2, BED IN LOWEST POSITION, BED WHEELS LOCKED, PERSONAL BELONGINGS AND CALL LIGHT WITHIN REACH FOR SAFETY.
[2025-06-09 07:44] VITALS: BP 174/95
[2025-06-09] MEDS ORDERED: Insulin Human Lispro 100 Units/ML 3ML Syringe SC SCH (08:30)
[2025-06-09] MEDS ORDERED: BASAGLAR K100 UNIT/6 SC (14:25)
[2025-06-09] MEDS ORDERED: AMLO10 PO (14:25)
[2025-06-09] MEDS ORDERED: HUMALOG KW100 UNIT/1 SC (14:26)
[2025-06-09] MEDS ORDERED: METO5A PO (14:27)
[2025-06-09] MEDS ORDERED: LISI5 PO (14:28)
--- NOTE | 2025-06-09 14:56 | NUR ---
PATIENT EVALUATED AND DISCHARGE ORDERS PLACED FOR PATIENT. PATIENT ASKED IF HE COULD STAY ONE MORE DAY AND WAS TOLD HE WAS MEDICALLY CLEAR FOR DISCHARGE. THIS RN LET PATIENT KNOW PAPERWORK WAS BEING DONE FOR DISCHARGE AND PATIENT ASKED IF HE COULD STAY FOR DINNER. THIS NURSE LET PATIENT KNOW DINNER WASN'T FOR 5 MORE HOURS. CATERING TRUCK DRIVER ASSISTED PATIENT TO GET DRESSED AND REMOVED IV. WHEN THIS RN WENT TO REVIEW PAPERWORK PATIENT ASKED IF THE WINDOWS OPENED AND WAS TOLD NO. PATIENT ASKED WHAT FLOOR WE WERE ON AND 3RD FLOOR WAS ANSWERED. PATIENT THEN STATED HE DIDN'T WANT TO LIVE. PHONE CALL TO . THIS NURSE WENT BACK INTO ROOM TO DISCUSS MEDICATION PRESCRIPTIONS AND PATIENT STATED HE WASN'T TAKING ANY PAPERWORK HOME WITH HIM AND HE WOULDN'T TAKE HIS PILLS.REVIEWED MEDICATIONS AND INSTRUCTIONS AND PATIENT AGAIN STATED "KEEP EM, I WONT TAKE THEM". STATED HE DID NOT WANT TO LIVE AND DIDN'T HAVE A REASON WHY HE FELT THIS WAY.
--- NOTE | 2025-06-09 15:07 | NUR ---
PATIENT PUT JACKET ON AND AMBULATED TO HALLWAY ASKING STAFF HOW TO GET OUT OF HOSPITAL. PATIENT BELONGINGS AND PAPERWORK WERE IN THE ROOM. THIS NURSE TOOK THEM AND GAVE THEM TO PATIENT. PRODUCT STEWARD TAKING PATIENT TO FRONT OF HOSPITAL FOR PATIENT TO WAIT FOR RIDE.
== END 2025-06-09 15:15 | disposition home or self-care (01) | DRG 683 ==
LOC: ER 17:35 → ERHOLD 17:36 → MEDS 06-06 12:30
PROVIDERS: Student in an Organized Health Care Education/Training Program; ADMIT Student in an Organized Health Care Education/Training Program
DX: N17.9 Acute kidney failure, unspecified (principal); E87.1 Hypo-osmolality and hyponatremia; E86.0 Dehydration; E11.65 Type 2 diabetes mellitus with hyperglycemia; N18.30 Chronic kidney disease, stage 3 unspecified; E11.22 Type 2 diabetes mellitus with diabetic chronic kidney disease; D63.1 Anemia in chronic kidney disease; I12.9 Hypertensive chronic kidney disease with stage 1 through stage 4 chronic kidney disease, or unspecified chronic kidney disease; E11.43 Type 2 diabetes mellitus with diabetic autonomic (poly)neuropathy; K31.84 Gastroparesis; Z59.02 Unsheltered homelessness; Z79.4 Long term (current) use of insulin; Z79.899 Other long term (current) drug therapy; Z90.49 Acquired absence of other specified parts of digestive tract; Z89.431 Acquired absence of right foot; Z87.891 Personal history of nicotine dependence
CPT/HCPCS: 36415; 71046; 76770; 80048; 80053; 81001; 82947; 83036; 83690; 83735; 84100; 84484; 85025; 93005; 93010; 96360; 96372; 99285-25; A9270; G0378; J1650; J1815; J2405; J7120

== ENCOUNTER 2025-06-23 12:55 | Emergency (ER) | payer MEDICARE ==
[~2025-06-23] VITALS: Ht 170.2 cm; Wt 77.1 kg
[~2025-06-23 12:55] MED LIST changes: +AMLO10 PO; +BASAGLAR K100 UNIT/6 SC; +HUMALOG KW100 UNIT/1 SC; +LISI5 PO; +METO5A PO
[2025-06-23 14:58] LABS: BASOPHILS ABSOLUTE AUTO 0.04 K/mm3 (0.00-0.23); BASOPHILS PERCENT AUTO 1 % (0-2); EOSINOPHILS ABSOLUTE AUTO 0.33 K/mm3 (0.00-0.68); EOSINOPHILS PERCENT AUTO 6 % (0-6); Hematocrit 27.8 % (37.0-53.0); Hemoglobin 9.6 g/dL (13.5-17.5); IMMATURE GRAN ABSOLUTE AUTO 0.02 K/mm3 (0.00-0.10); IMMATURE GRAN PERCENT AUTO 0 % (0-1); LYMPHOCYTES ABSOLUTE AUTO 1.28 K/mm3 (0.84-5.20); LYMPHOCYTES PERCENT AUTO 23 % (21-46); MONOCYTES ABSOLUTE AUTO 0.45 K/mm3 (0.16-1.47); MONOCYTES PERCENT AUTO 8 % (4-13); Mean Corpuscular HGB Conc 34.5 g/dL (31.5-36.5); Mean Corpuscular Volume 87 fL (80-100); NEUTROPHILS ABSOLUTE AUTO 3.46 K/mm3 (1.96-9.15); NEUTROPHILS PERCENT AUTO 62 % (41-73); NRBC ABSOLUTE 0.00 K/mm3 (0.00-0.02); NRBC Auto 0.0 /100 WBC (0.0-0.2); Platelet Count 237 K/mm3 (150-400); RDW Coefficient Variation 14.1 % (11.7-14.2); RDW Standard Deviation 45.4 fL (35.1-46.3)
[2025-06-23 15:24] LABS: Alanine Aminotransfer (ALT/SGP 37.0 U/L (12-78); Albumin, Blood 2.1 g/dL (3.4-5.0); Albumin/Globulin Ratio 0.6 (0.8-1.8); Anion Gap 11.0 mmol/L (3-11); Aspartate Aminotrans (AST/SGOT 32.0 U/L (12-37); Bilirubin, Total 0.5 mg/dL (0.1-1.0); Blood Urea Nitrogen 39.0 mg/dL (8-24); CO2, Blood 26.0 mmol/L (21-32); Calcium, Blood 8.3 mg/dL (8.5-10.1); Chloride, Blood 105.0 mmol/L (98-108); Creatinine, Blood 1.45 mg/dL (0.60-1.20); Globulin, Blood 3.5 g/dL (2.2-4.0); Glucose, Blood 132.0 mg/dL (70-99); Potassium, Blood 4.7 mmol/L (3.5-5.5); Sodium, Blood 137.0 mmol/L (136-145); Thyroid Stimulating Hormone 3.77 uIU/mL (0.360-4.800); Total Protein, Blood 5.6 g/dL (6.4-8.2)
[2025-06-23 16:00] VITALS: BP 165/97
== END 2025-06-23 16:26 | disposition home or self-care (01) ==
LOC: ER 12:55
PROVIDERS: Emergency Medicine
DX: R60.0 Localized edema (principal); E11.69 Type 2 diabetes mellitus with other specified complication; M86.9 Osteomyelitis, unspecified; Z79.4 Long term (current) use of insulin; Z79.899 Other long term (current) drug therapy; Z88.8 Allergy status to other drugs, medicaments and biological substances; Z87.891 Personal history of nicotine dependence
CPT/HCPCS: 80053; 84439; 84443; 85025; 99283

== ENCOUNTER 2025-07-17 20:19 | Emergency (ER) | payer MEDICARE | END 2025-07-18 02:35 | disposition home or self-care (01) | LOC: ER 20:19 | DX: R11.2 Nausea with vomiting, unspecified (principal); R10.9 Unspecified abdominal pain; E11.9 Type 2 diabetes mellitus without complications; Z87.891 Personal history of nicotine dependence; Z88.8 Allergy status to other drugs, medicaments and biological substances; Z79.4 Long term (current) use of insulin; Z79.899 Other long term (current) drug therapy ==